=== PATIENT | male | born 1985 | race Caucasian/White ===

== ENCOUNTER 2019-01-19 05:41 | Emergency (ER) | payer OTHER, SELFPAY ==
[2019-01-19 05:45] VITALS: BP 131/85; PULSE 65; RESP 18; TEMP 36.6; O2SAT 99; BMI 30.5
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
[2019-01-19] MEDS: PROPARACAINE 0.5% OPHTH SOL 1 DROPS EYE-RIGHT (05:56)
[2019-01-19] MEDS: ERYTHROMYCIN OPHTH 1 GM OINT 1 APPLIC EYE-RIGHT (05:59)
== END 2019-01-19 06:06 | disposition home or self-care (01) ==
PROVIDERS: Emergency Provider Emergency Medicine
DX: S05.01XA Injury of conjunctiva and corneal abrasion without foreign body, right eye, initial encounter (principal)
CPT/HCPCS: 99283

== ENCOUNTER 2021-07-17 10:39 | Emergency (ER) | payer OTHER, SELFPAY ==
[2021-07-17 10:47] VITALS: BP 122/71; PULSE 64; RESP 16; TEMP 36.4; O2SAT 98; BMI 31.3
[2021-07-17] MEDS: FLUORESCEIN 1 MG STRIP EYE-RIGHT (11:55)
[2021-07-17] MEDS: PROPARACAINE 0.5% OPHTH SOL 1 DROPS EYE-RIGHT (11:55)
[2021-07-17] MEDS: ERYTHROMYCIN OPHTH 1 GM OINT 1 APPLIC EYE-RIGHT (12:29)
[2021-07-17] MEDS: KETOROLAC 10 MG TABLET PO (12:29)
[2021-07-17 12:35] VITALS: BP 109/67; PULSE 76; RESP 16; O2SAT 98
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
== END 2021-07-17 12:36 | disposition home or self-care (01) ==
PROVIDERS: Emergency Provider Nurse Practitioner Critical Care Medicine; PCP Student in an Organized Health Care Education/Training Program
DX: S05.01XA Injury of conjunctiva and corneal abrasion without foreign body, right eye, initial encounter (principal)
CPT/HCPCS: 99283